=== PATIENT | female | born 1965 | race Caucasian/White ===

== ENCOUNTER 2017-01-26 12:48 | Emergency (ER) | payer OTHER | END 2017-01-26 13:30 | disposition home or self-care (01) | LOC: ER 12:48 | DX: M25.531 Pain in right wrist (principal); I10 Essential (primary) hypertension; F32.9 Major depressive disorder, single episode, unspecified; F41.9 Anxiety disorder, unspecified; E11.9 Type 2 diabetes mellitus without complications; K21.9 Gastro-esophageal reflux disease without esophagitis; G43.909 Migraine, unspecified, not intractable, without status migrainosus; Z79.84 Long term (current) use of oral hypoglycemic drugs; Z79.899 Other long term (current) drug therapy; Z88.5 Allergy status to narcotic agent; Z88.6 Allergy status to analgesic agent; X50.0XXA Overexertion from strenuous movement or load, initial encounter ==